=== PATIENT | male | born 1980 | race Caucasian/White ===

== ENCOUNTER → 2016-11-06 | Outpatient (CLI) | payer BC ==
--- NOTE | 2016-11-06 13:49 | RADIOLOGY REPORT (SQ) ---
EXAM DESCRIPTION: MRI HEAD WITHOUT COMPLETED DATE/TIME: 11/06/2016 1:29 pm REASON FOR STUDY: DIZZINESS AND GIDDINESS (R42) R42 DIZZINESS AND GIDDINESS COMPARISON: None. TECHNIQUE: Multiplanar imaging includes non-contrasted T1, T2, FLAIR, and diffusion with ADC map seq uences. Images stored on PACS. LIMITATIONS: None. FINDINGS: ANATOMY: No anomalies. Normal vascular flow voids. Pituitary fossa normal. CSF SPACES: Normal in size and contour. No hemorrhage. CEREBRUM: Sulci and gyri normal in size and contour. Normal white matter signal on FLAIR imaging. No evidence of hemorrhage, mass, or extraaxial fluid collection. POSTERIOR FOSSA: No signal alteration. No hemorrhage. No edema, masses or mass effect. Internal florina tory canals, cerebello-pontine angles, mastoids normal. DIFFUSION IMAGING: Negative for acute or sub-acute infarction. ORBITS: No masses. Globes normal. PARANASAL SINUSES: No fluid levels. OTHER: No other significant finding. IMPRESSION: Normal brain. TECHNICAL DOCUMENTATION: JOB ID: [id number]- All Rights Reserved
--- NOTE | 2016-11-06 13:51 | RADIOLOGY REPORT (SQ) ---
EXAM DESCRIPTION: MRA HEAD WITHOUT COMPLETED DATE/TIME: 11/06/2016 1:29 pm REASON FOR STUDY: DIZZINESS AND GIDDINESS (R42) R42 DIZZINESS AND GIDDINESS COMPARISON: None. TECHNIQUE: Axial 3-D [id number] acquisition imaging performed through the brain in the area of t he [place]. Images reformatted using 3-D MIPS. LIMITATIONS: None. FINDINGS: SOURCE IMAGES: See separate report of the same date. 3-D MIP: No aneurysm. No occlusions. No significant stenosis. OTHER: No other significant finding. IMPRESSION: NORMAL MRA OF THE [place]. TECHNICAL DOCUMENTATION: JOB ID: [id number] [employer]- All Rights Reserved
== END ==
LOC: RAD 12:24
PROVIDERS: ATTEND Physician Assistant
DX: R42 Dizziness and giddiness (principal)
CPT/HCPCS: 70544; 70551

== ENCOUNTER 2018-08-08 08:21 | Day surgery (SDC) | payer BC ==
[~2018-08-08 08:21] MED LIST: PROPOFOL INJ 200 MG/20 ML VIAL IV ONE
[2018-08-08 10:42] VITALS: BP 114/65
--- NOTE | 2018-08-08 11:01 | Operative Report ---
Operative Report DATE OF SURGERY: 08/08/18 Operative Report: The risks benefits and alternatives of the procedure explained to the patient in detail and informed consent is obtained.A GIF Olympus video scope was inserted into the patient's mouth and hypopharynx, the esophagus is identified intubated and insufflated ,the scope was then advanced through the esophagus stomach and duodenum, retroflexion maneuver is done, the esophagus stomach and first and second portions of the duodenum examined. PREOPERATIVE DIAGNOSIS: Dysphagia POSTOPERATIVE DIAGNOSIS: Esophageal rings and furrows suggestive of eosinophilic esophagitis status post biopsy for confirmation. Gastritis status post biopsy to rule out Helicobacter pylori OPERATION: EGD with biopsy SURGEON: MACK RIVERA ANESTHESIA: LMAC TISSUE REMOVED OR ALTERED: As noted above. COMPLICATIONS: None. ESTIMATED BLOOD LOSS: None. INTRAOPERATIVE FINDINGS: As noted above. PROCEDURE: Patient tolerated the procedure well. No immediate postprocedure complications are noted. Patient discharged in good condition. Discharge date 08/08/2018. Discharge diet: Regular. Discharge activity: Regular. 2-3-week follow-up to discuss findings. Patient is instructed to call the office or proceed to the emergency room should there be any further problems or questions. Wait on the pathology.
== END 2018-08-08 09:45 | disposition home or self-care (01) ==
LOC: OROUT 08:21
PROVIDERS: ATTEND Internal Medicine Gastroenterology
DX: R13.10 Dysphagia, unspecified (principal); J45.909 Unspecified asthma, uncomplicated; Z79.899 Other long term (current) drug therapy
CPT/HCPCS: 43239; 88305 ×2; J2704; 731

== ENCOUNTER 2018-11-12 13:55 | Emergency (ER) | payer BC ==
[2018-11-12] MEDS ORDERED: MORPHINE SULFATE 10 MG/ML INJ IM ONE (14:03)
--- NOTE | 2018-11-12 14:04 | ER Document Report ---
ED Medical Screen (RME) - General Chief Complaint: Hand Pain Stated Complaint: LEFT HAND INJURY Time Seen by Provider: 11/12/18 14:01 Primary Care Provider: PRANAY PATEL PA-C [Primary Care Provider] - Follow up as needed Mode of Arrival: Ambulatory Information source: Patient Notes: Patient is a 38-year-old male presented to the emergency department with a nail in his left wrist. Patient reports this is from a pneumatic nail gun. He states this happened just prior to arrival. He has a strong radial pulse there is no active bleeding noted his cap refill is less than 3 seconds and he has normal motor and sensation distal to the area of injury. I have greeted and performed a rapid initial assessment of this patient. A comprehensive ED assessment and evaluation of the patient, analysis of test results and completion of the medical decision making process will be conducted by additional ED providers. I have specifically instructed the patient or famil y members with the patient to immediately return to any nursing staff should anything change in the patient's condition or with their chief complaint. This medical record was dictated with voice recognizing software. There may be grammatical, syntax errors that are unintended. TRAVEL OUTSIDE OF THE [place] IN LAST 30 DAYS: No - Related Data Allergies/Adverse Reactions: No Known Allergies Allergy (Verified 11/12/18 14:00) Past Medical History - Past Medical History Cardiac Medical History: Denies: Hx Coronary Artery Disease, Hx Heart Attack, Hx Hypertension Pulmonary Medical History: Reports: Hx Asthma Denies: Hx Bronchitis, Hx COPD, Hx Pneumonia Neurological Medical History: Denies: Hx Cerebrovascular Accident, Hx Seizures Musculoskeltal Medical History: Reports Hx Arthritis - DDD Skin Medical History: Reports Hx MRSA Infectious Medical History: Reports: Hx MRSA Past Surgical History: Reports: Hx Appendectomy - Immunizations Immunizations up to date: Yes Hx Diphtheria, Pertussis, Tetanus Vaccination: Yes - 2008 History of Influenza Vaccine for 01/2017 - 06/2017 Season: No Doctor's Discharge - Discharge Referrals: PRANAY PATEL PA-C [Primary Care Provider] - Follow up as needed
--- NOTE | 2018-11-12 14:29 | RADIOLOGY REPORT (SQ) ---
EXAM DESCRIPTION: WRIST LEFT 3 VIEWS COMPLETED DATE/TIME: 11/12/2018 2:14 pm REASON FOR STUDY: nail in wrist COMPARISON: None. NUMBER OF VIEWS: Three views. TECHNIQUE: AP, lateral, and oblique radiographic images acquired of the left wrist. LIMITATIONS: None. FINDINGS: MINERALIZATION: Normal. BONES: Nail injury Nail entering through the dorsal aspect of the carpal bones and angled medially a nd terminating in the hamate. SOFT TISSUES: No soft tissue swelling. No foreign body. OTHER: No other significant finding. IMPRESSION: Nail injury. See above discussion TECHNICAL DOCUMENTATION: JOB ID: [id number] [employer]- All Rights Reserved Reading location - IP/workstation name: [email or web address]
[2018-11-12] MEDS ORDERED: FENTANYL CITRATE INJ/PF 100 MCG/2 ML AMPUL IV ONE (18:12)
[2018-11-12] MEDS ORDERED: ONDANSETRON HCL INJ/PF 4 MG/2 ML SDV IV ONE ×3 (18:12→20:49)
[2018-11-12] MEDS ORDERED: CEFAZOLIN 2 GM/D5W RTU 2 GM/50 ML RTUPB IV ONE (18:13)
--- NOTE | 2018-11-12 18:13 | ER Document Report ---
ED General - General Chief Complaint: Hand Pain Stated Complaint: LEFT HAND INJURY Time Seen by Provider: 11/12/18 14:01 Primary Care Provider: RADAMES VALENTIN MD [ASSOCIATE] - Follow up in 3-5 days Mode of Arrival: Ambulatory Notes: Patient is a 38-year-old male that presents to the emergency department for chief complaint of nail injury from nail gun to the left hand. Patient states that he was putting shingles on a roof, and he had his hand on the shingle, he went to go use a nail gun, and somewhat stepped on the air hose, and pulled the gun back and the nail gun struck his left hand putting in a barbed nail into his left hand. He is right-handed. Denies any other injuries. Did not fall. He currently rates his pain as a 10 out of 10, has a little bit of tingling in his fourth and fifth digit, but has feeling intact, he currently describes his pain as a constant aching and throbbing pain is radiating up towards his elbow. No other complaints at this time. He believes his last tetanus shot was approximately 7 years ago. Past Medical History: Denies chronic medical conditions Past Surgical History: Hip surgery, appendectomy Social History: Admits to smoking cigarettes and occasional alcohol use, denies illicit drug use. Family History: Reviewed and noncontributory for presenting illness Allergies: Reviewed, see documented allergy list. REVIEW OF SYSTEMS: Other than noted above, the 12 point review of systems was reviewed with the patient and were negative, all pertinent findings are included in the HPI. PHYSICAL EXAMINATION: Vital signs reviewed, nursing noted reviewed. GENERAL: Patient is pacing in the room, appears uncomfortable and in pain. HEAD: Atraumatic, normocephalic. EYES: Eyes appear normal, extraocular movements intact, sclera anicteric, conjunctiva are normal. ENT: nares patent, oropharynx clear without exudates. Moist mucous membranes. NECK: Normal range of motion, supple without lymphadenopathy LUNGS: Breath sounds clear to auscultation bilaterally and equal. No wheezes rales or rhonchi. HEART: Regular rate and rhythm without murmurs ABDOMEN: Soft, nontender, normoactive bowel sounds. No rebound, guarding, or rigidity. No masses appreciated. EXTREMITIES: In the dorsum of the left hand, there is a metal nail, flush with the skin, no bleeding from the site. Patient is neurovascularly intact distally, able to move all fingers with discomfort however, there is no laceration, or puncture wound on the palmar aspect of the hand. Patient's cap refill is less than 3 seconds in all digits. Sensation intact in all digits distally, and patient is able to move all digits. The rest the patient's extremity exam is grossly unremarkable, with good range of motion, and otherwise nontender with the exception of the left hand. NEUROLOGICAL: No focal neurological deficits. Moves all extremities spontaneously Motor and sensory grossly intact on exam. PSYCH: Appears uncomfortable and in pain. SKIN: Warm, Dry, normal turgor, no rashes or lesions noted on exposed skin TRAVEL OUTSIDE OF THE [place] IN LAST 30 DAYS: No - Related Data Allergies/Adverse Reactions: propofol [From Diprivan] Adverse Reaction (Severe, Verified 11/12/18 20:38) Confusion Past Medical History - General Information source: Patient - Social History Smoking Status: Current Some Day Smoker Frequency of alcohol use: Occasional Drug Abuse: None Family History: Reviewed & Not Pertinent Patient has suicidal ideation: No Patient has homicidal ideation: No - Past Medical History Cardiac Medical History: Denies: Hx Coronary Artery Disease, Hx Heart Attack, Hx Hypertension Pulmonary Medical History: Reports: Hx Asthma Denies: Hx Bronchitis, Hx COPD, Hx Pneumonia Neurological Medical History: Denies: Hx Cerebrovascular Accident, Hx Seizures Renal/ Medical History: Denies: Hx Peritoneal Dialysis Musculoskeletal Medical History: Reports Hx Arthritis - DDD Skin Medical History: Reports Hx MRSA Infectious Medical History: Reports: Hx MRSA Past Surgical History: Reports: Hx Appendectomy - Immunizations Immunizations up to date: Yes Hx Diphtheria, Pertussis, Tetanus Vaccination: Yes - 2008 Physical Exam - Vital signs Vitals: Pulse Resp BP Pulse Ox 89 18 145/108 H 99 11/12/18 14:02 11/12/18 14:02 11/12/18 14:02 11/12/18 14:02 Course - Re-evaluation Re-evalutation: Patient seen and examined vital signs reviewed. Patient was evaluated and treated as appropriate for the patient's presenting symptoms and complaint, with consideration of any critical or life threatening conditions that may be associated with their obtained history and exam as noted above. Patient was treated with initially given morphine in triage, x-ray obtained which demonstrated an nail that appeared to be embedded in the dorsal aspect of the hamate, no penetration anterior to the carpal bones. Patient still having pain when I saw him, he was given IV fentanyl, still having significant pain, it seemed to "wear off" and was then given Zofran, and Dilaudid, which did seem to help with the pain to a degree. Procedural sedation was discussed with the patient to remove the nail, I initially did call orthopedic surgery, but they cannot perform this until Saturday, did not find it to be emergent, which I did agree with, but patient did not feel that he could wait that long, due to his pain, so I did discuss with him the risks and benefits having the nail removed in the emergency department under conscious sedation, and reviewed medication propofol with him as well other potential agents, patient was agreeable to proceed forward. Patient seemed to have adverse reaction to propofol in the emergency department, as noted, he became rather agitated, and had to be re-sedated with IV Versed and etomidate, which did adequately sedate the patient, his hand was anesthetized with 1% lidocaine a total of 5 mL's, and the nail was removed successfully. Patient had minimal bleeding afterwards, dressing was applied he was placed in a splint. Patient was monitored post procedurally, and looking up, was somewhat mildly confused which would be expected, but seemed very agitated was having tremors, and one point it have vomiting, and was given additional Zofran, and Benadryl to help with his symptoms, seemingly as adverse reactions from the sedating medications. I did discuss with him if he use any illicit drugs, apparently marijuana was found on him in the emergency department, but he denied any other illicit drugs. The patient was re-evaluated and was improving, nausea resolved, he was still having some pain, but was alert, and appeared much improved, patient will be dispensed home with [place], prescriptions for Keflex, and naproxen, and have him follow-up with orthopedic surgery. Evaluation was most consistent with nail to the left hand, removed in the ED, have him follow-up with orthopedic surgery. Plan of care was discussed with the patient at this point, after careful consideration I feel that that patient can be discharged from the emergency department, the patient was educated treatments and reasons to return to the emergency department based on their presumed diagnosis as noted above, they were advised to followup with a primary care physician in 2-3 days. Patient was agreeable to plan of care. *Note is created using voice recognition software and may contain spelling, syntax or grammatical errors. 11/12/18 22:52 - Vital Signs Vital signs: Temp Pulse Resp BP Pulse Ox 99.1 F 45 L 16 133/86 H 100 11/12/18 19:48 11/12/18 21:38 11/12/18 22:06 11/12/18 22:06 11/12/18 22:06 Procedures - Conscious Sedation Conscious sedation Consent obtained: Yes Indication: Metal nail removal Prior complications: Procedural sedation Emergent conditions applies.: E. - ASA Classification Airway Evaluation: Normal anatomy Mallampati Classification: Class 1 Used during procedure: Suction available, IV access obtained, Pulse ox on pt., clerk on pt. Medications administered: Versed - 4mg, Etomidate - 15mg, Diprivan - 100mg total in 20mg alliquots Reversal agents: None I personally performed/intraservice time: Sedation, Procedure, 30 min or less Notes: Risks and benefits of the procedure and sedation were described to the patient. Patient allergies reviewed, and patient stated no known drug allergies. Patient was initially given 40 mg of propofol IV, and additionally given 20 mg and an additional 20 mg as the patient was not achieving adequate sedation, and lastly given a final 20 mg, total 100 mg, at this point the patient became agitated, altered, and was aggressive, pulling at all limbs, and sitting up in the bed, seemingly having an emergence reaction to the medication. At this point asked the nursing staff to give the patient 4 mg of IV Versed, initially given as 2 mg, and then 5 minutes later followed by another 2 mg as the patient was still rather agitated, and was becoming a harm to himself. Patient seemed to relax some, but was still having agitation, to complete the procedure to remove the nail from the patient's hand, he was given lastly 50 mg of etomidate. This did adequately sedate the patient, after locally anesthetizing the patient's dorsum of his hand with 1% lidocaine, a total of 5 mL around the site of the nail, the nail was removed using curved hemostats, and pliers. Patient tolerated this well, and was monitored post procedurally. - Immobilization Left Wrist Pre-Proc Neuro Vasc Exam: Normal Immobilizer type: Cock-up Performed by: PCT Post-Proc Neuro Vasc Exam: Normal Alignment checked and good: Yes Critical Care Note - Critical Care Note Total time excluding time spent on procedures (mins): 35 Comments: Critical care time 35 minutes exclusive from separate billable procedures for a patient requiring complex medical decision making, and high potential for clinical deterioration. In a patient that had adverse reactions to sedatives, requiring frequent reevaluation, and monitoring, in addition to his procedure itself. Time spent obtaining history from patient or surrogate, discussions with consultants, development of treatment plan with patient or surrogate, evaluation of patient's response to treatment, examination of patient, ordering and performing treatments and interventions, ordering and review of laboratory studies, re-evaluation of patient's condition, ordering and review of radiographic studies and review of old charts Discharge - Discharge Clinical Impression: Foreign body hand Qualifiers: Encounter type: initial encounter Laterality: left Qualified Code(s): S60.552A - Superficial foreign body of left hand, initial encounter Condition: Stable Disposition: HOME, SELF-CARE Additional Instructions: Please follow-up with orthopedic surgery, and take the prescribed antibiotic as directed for the next 6 days, take the anti-inflammatory pain medication, twice daily, and for breakthrough pain you may take the stronger pain pill, recommend keeping your arm elevated as much as possible, and leaving the splint in place, if you notice fever, or pus drainage from the wound, please return to the emergency department immediately to be reevaluated. Prescriptions: Cephalexin Monohydrate [Keflex 500 mg Capsule] 500 mg PO TID 7 Days #18 capsule Hydrocodone/Acetaminophen [[place] 5-325 mg Tablet] 1 tab PO Q8H PRN #12 tablet PRN Reason: hand pain Naproxen [Naprosyn] 500 mg PO BID #30 tablet Referrals: RADAMES VALENTIN MD [ASSOCIATE] - Follow up in 3-5 days
[2018-11-12] MEDS ORDERED: DIPH/PERTUSS(ACELL)/TETANUS VAC/PF 0.5 ML SYR (>=10YO) IM ONE (18:23)
[2018-11-12] MEDS ORDERED: PROPOFOL INJ 200 MG/20 ML VIAL IV ONE (18:59)
[2018-11-12] MEDS ORDERED: CEFAZOLIN SODIUM 2 GM in DEXTROSE 5%-WATER 100 ML IV ONE (19:30)
[2018-11-12] MEDS ORDERED: HYDROMORPHONE HCL INJ/PF 2 MG/ML AMPULE IV ONE (19:33)
[2018-11-12] MEDS ORDERED: MIDAZOLAM 2 MG/2 ML INJ ONE (19:59)
[2018-11-12] MEDS ORDERED: LIDOCAINE 1% INJ-PF (10 MG/ML) 30 ML SDV ONE (20:05)
[2018-11-12] MEDS ORDERED: ETOMIDATE INJ/PF 20 MG/10 ML SDV IV ONE (20:05)
[2018-11-12] MEDS ORDERED: DIPHENHYDRAMINE HCL 50 MG/ML VIAL ONE (20:58)
[2018-11-12] MEDS ORDERED: DIPHENHYDRAMINE HCL 50 MG/ML VIAL IV ONE (20:58)
[2018-11-12] MEDS ORDERED: PROCHLORPERAZINE EDISYLATE INJ 10 MG/2 ML VIAL IM ONE (21:28)
[2018-11-12] MEDS ORDERED: HYDROCODONE/ACETAMINOPHEN 5-325 MG (6 TAB/ER DISP) PO PRN (22:45)
[2018-11-12] MEDS ORDERED: HYDROCODONE/ACETAMINOPHEN 5-325 MG TABLET PO ONE (22:45)
[2018-11-12 23:47] VITALS: BP 126/86
== END 2018-11-12 23:47 | disposition home or self-care (01) ==
LOC: ER 13:55
DX: S60.552A Superficial foreign body of left hand, initial encounter (principal); W29.4XXA Contact with nail gun, initial encounter; Y93.H3 Activity, building and construction; Y99.0 Civilian activity done for income or pay; R11.0 Nausea; F17.200 Nicotine dependence, unspecified, uncomplicated; Z23 Encounter for immunization; Z86.14 Personal history of Methicillin resistant Staphylococcus aureus infection
CPT/HCPCS: 96376; 99285; 96372; 99152; 90471; 96375; 96365; 96366; 73110; 90715; 20103; L3908 ×2; J2250; J0690; J1200; J3010; J3490 ×2; J2270; J1170; J2405; J7060; J2704

== ENCOUNTER 2018-11-14 09:45 | Day surgery (SDC) | payer BC ==
[~2018-11-14 09:45] MED LIST changes: -PROPOFOL INJ 200 MG/20 ML VIAL IV ONE; +SUCCINYLCHOLINE CHLORIDE INJ 200 MG/10 ML VIAL ONE
[2018-11-14] MEDS ORDERED: CEFAZOLIN SODIUM 2 GM in DEXTROSE 5%-WATER 100 ML IV PRN (10:15)
[2018-11-14] MEDS ORDERED: ALBUTEROL SULFATE 0.083% NEB 2.5 MG/3 ML AMPUL NEB ONE (11:11)
[2018-11-14] MEDS ORDERED: FAMOTIDINE INJ/PF 20 MG/2 ML SDV IV ONE (11:14)
[2018-11-14] MEDS ORDERED: FENTANYL CITRATE INJ/PF 100 MCG/2 ML AMPUL ONE (11:28)
[2018-11-14] MEDS ORDERED: MIDAZOLAM 2 MG/2 ML INJ ONE (11:28)
[2018-11-14] MEDS ORDERED: PROPOFOL INJ 200 MG/20 ML VIAL IV ONE (11:54)
[2018-11-14] MEDS ORDERED: BUPIVACAINE HCL 0.25 % INJ/PF (2.5 MG/1 ML) 30 ML VIAL ONE (12:41)
[2018-11-14] MEDS ORDERED: FENTANYL CITRATE INJ/PF 100 MCG/2 ML AMPUL IV PRN ×3 (12:45)
[2018-11-14] MEDS ORDERED: PROMETHAZINE HCL INJ 25 MG/1 ML VIAL IV PRN ×2 (12:45)
[2018-11-14] MEDS ORDERED: MORPHINE SULFATE 10 MG/ML INJ IV PRN (12:45)
[2018-11-14] MEDS ORDERED: DIPHENHYDRAMINE HCL 50 MG/ML VIAL IV PRN (12:45)
[2018-11-14] MEDS ORDERED: MEPERIDINE HCL/PF INJ 25 MG/1 ML DISP.SYRIN IV PRN (12:45)
--- NOTE | 2018-11-14 13:36 | Operative Report ---
Operative Report DATE OF SURGERY: 11/14/18 PREOPERATIVE DIAGNOSIS: 1. Left open hamate fracture. 2. Left retained forei gn body POSTOPERATIVE DIAGNOSIS: Same OPERATION: 1. Open treatment left hamate fracture. 2. Debridement left open hamate fracture. 3. Removal of deep retained foreign body SURGEON: RADAMES VALENTIN ANESTHESIA: GA ESTIMATED BLOOD LOSS: Minimal INTRAOPERATIVE FINDINGS: 1. Retained metallic foreign body. 2. Open hamate fracture. 3. Contaminated skin, cutaneous tissue, muscle, and bone. PROCEDURE: Indications for procedure: Mr. Lama is a 38-year-old man who sustained an open fracture of the left hamate with contamination of bone and soft tissue when he accidentally impaled a nail into the dorsum of his wrist with a nail gun. Patient was evaluated in the emergency room and the nail was removed; however, a portion of the nail was retained deep in the soft tissue. Description of procedure: Following the induction of a general anesthetic and administration of antibiotics, the patient was positioned supine on the operating room table. All bony prominences were padded. The extremity was sterilely prepped with Betadine scrub and prep solution. The arm was exsanguinated and a tourniquet inflated to 250 mmHg. A longitudinal incision was made on the dorsum of the wrist overlying the traumatic wound. The skin, subcutaneous tissue and deep tissue was found to be brown and contaminated. This tissue was removed. The extensor tendons were then mobilized. This brought us down upon the wrist capsule. The wrist capsule was opened. Metallic foreign body was identified and removed. The open fracture of the hamate was identified. This was also found to be contaminated and the open fracture was d ebrided with a curette. Copious irrigation of the open fracture was performed with sterile saline. The wrist capsule was then closed with 2-0 Vicryl. Additional irrigation was then performed. The skin was then closed with 3-0 nylon suture using interrupted sutures. Quarter percent Marcaine was injected for postoperative analgesia. A sterile dressing and volar splint was applied. The patient tolerated the procedure well without complications and was awakened and brought to recovery in good condition.
[2018-11-14] MEDS ORDERED: DEXMEDETOMIDINE INJ 80 MCG/20 ML VIAL IV ONE (13:39)
[2018-11-14] MEDS: MIDAZOLAM 2 MG/2 ML INJ ONE ×2 (14:27→15:18)
[2018-11-14] MEDS ORDERED: FLUMAZENIL INJ 0.5 MG/5 ML VIAL ONE (14:33)
[2018-11-14] MEDS ORDERED: NALOXONE HCL INJ/PF 0.4 MG/1 ML SDV ONE (14:56)
[2018-11-14 15:00] LABS: CALCIUM 8.6 mg/dL (8.4-10.2); PHOSPHORUS 4.1 mg/dL (2.5-4.5); POTASSIUM 3.3 mmol/L (3.6-5.0)
[2018-11-14] MEDS ORDERED: ONDANSETRON HCL INJ/PF 4 MG/2 ML SDV IV PRN (15:00)
[2018-11-14] MEDS ORDERED: LORAZEPAM INJ 2 MG/1 ML VIAL ONE (15:18)
[2018-11-14] MEDS ORDERED: ACETAMINOPHEN 1,000 MG/100 ML RTUPB IV ONE (15:18)
[2018-11-14] MEDS ORDERED: ONDANSETRON HCL INJ/PF 4 MG/2 ML SDV ONE (15:46)
[2018-11-14] MEDS ORDERED: ALBUTEROL SULFATE 0.083% NEB 2.5 MG/3 ML AMPUL NEB PRN (16:26)
[2018-11-14] MEDS ORDERED: ONDANSETRON 4 MG TAB.RAPDIS PO PRN (16:26)
[2018-11-14] MEDS ORDERED: MAG HYDROX/AL HYDROX/SIMETH SUSP 30 ML UDCUP PO PRN (16:26)
[2018-11-14] MEDS ORDERED: ACETAMINOPHEN 325 MG TABLET PO PRN (16:26)
[2018-11-14] MEDS ORDERED: TEMAZEPAM 15 MG CAPSULE PO PRN (16:26)
[2018-11-14] MEDS ORDERED: LORAZEPAM 0.5 MG TABLET PO PRN (16:26)
--- NOTE | 2018-11-14 16:50 | PDOC H&P ---
History of Present Illness Admission Date/PCP: PRANAY PATEL PA-C Patient complains of: Adverse reaction to succinylcholine History of Present Illness: TR ESPINAL JR is a 38 year old male who presented for surgery to remove foreign body from his left wrist. He was given succinylcholine for the intubation. The surgery only took 45 minutes. Postop the patient woke up however he could not move his head off the pillow. He has baseline bradycardia and so this is not new. 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 He has slowly recovering but anesthesia would like to have the patient admitted for overnight observation. Past Medical History Cardiac Medical History: Denies: Coronary Artery Disease, Myocardial Infarction, Hypertension Pulmonary Medical History: Reports: Asthma Denies: Bronchitis, Chronic Obstructive Pulmonary Disease (COPD), Pneumonia EENT Medical History: Denies: Eyes, Ears, Nose, Throat Neurological Medical History: Denies: Seizures Endocrine Medical History: Denies: Diabetes Mellitus Type 1, Hypothyroidism Renal/ Medical History: Denies: Chronic Kidney Disease, Nephrolithiasis Malignancy Medical History: Reports: None GI Medical History: Denies: Cirrhosis, Diverticulitis, Hepatitis, Ulcerative Colitis Musculoskeltal Medical History: Reports: Arthritis - DDD Skin Medical History: Denies: Eczema, Psoriasis Psychiatric Medical History: Reports: General Anxiety Disorder, Tobacco Dependency Denies: Alcohol Dependency, Depression Hematology: Denies: Anemia Infectious Medical History: Reports: Methicillin-Resistant Staph Aureus Past Surgical History Past Surgical History: Reports: Appendectomy, Orthopedic Surgery - Left wrist surgery today, right hip surgery Social History Information Source: Patient Lives with: Family Smoking Status: Current Every Day Smoker Frequency of Alcohol Use: Rare Hx Recreational Drug Use: Yes Drugs: Marijuana Hx Prescription Drug Abuse: No - Advance Directive Resuscitation Status: Full Code Family History Family History: CAD, Malignancy Parental Family History Reviewed: Yes Children Family History Reviewed: NA Sibling(s) Family History Reviewed.: Yes Medication/Allergy Home Medications: Trazodone HCl 50 mg PO ASDIR PRN 08/07/18 Cephalexin Monohydrate [Keflex 500 mg Capsule] 500 mg PO TID 7 Days #18 capsule 11/12/18 Hydrocodone/Acetaminophen [[place] 5-325 mg Tablet] 1 tab PO Q8H PRN #12 tablet 11/12/18 Naproxen [Naprosyn] 500 mg PO BID #30 tablet 11/12/18 Allergies/Adverse Reactions: propofol [From Diprivan] Adverse Reaction (Severe, Verified 11/14/18 10:27) Confusion Review of Systems Constitutional: ABSENT: chills, fever(s), headache(s), night sweats Eyes: ABSENT: visual disturbances Ears: ABSENT: hearing changes Nose, Mouth, and Throat: ABSENT: headache(s), mouth pain, sore throat Cardiovascular: ABSENT: chest pain, dyspnea on exertion, edema, palpitations Respiratory: ABSENT: cough, dyspnea, hemoptysis Gastrointestinal: ABSENT: abdominal pain, constipation, diarrhea, dysphagia, nausea, vomiting Genitourinary: PRESENT: nocturia. ABSENT: dysuria, hematuria Musculoskeletal: PRESENT: other - Cast on left wrist Integumentary: ABSENT: erythema, lesions, rash Neurological: PRESENT: weakness - Diffuse muscular weakness Psychiatric: PRESENT: anxiety. ABSENT: depression, hallucinations Endocrine: ABSENT: cold intolerance, flushing, heat intolerance Hematologic/Lymphatic: ABSENT: easy bleeding, easy bruising, lymphadenopathy Physical Exam Vital Signs: Temp Pulse Resp BP Pulse Ox 98.3 F 74 30 H 168/143 H 99 11/14/18 10:00 11/14/18 14:45 11/14/18 15:05 11/14/18 14:45 11/14/18 15:05 Intake & Output 11/13/18 11/14/18 11/15/18 06:59 06:59 06:59 Intake Total 0 Balance 0 Weight 70.31 kg General appearance: PRESENT: cooperative, mild distress, well-developed Head exam: PRESENT: atraumatic, normocephalic Eye exam: PRESENT: conjunctiva pink, EOMI. ABSENT: scleral icterus Ear exam: PRESENT: normal external ear exam Mouth exam: PRESENT: dry mucosa, tongue midline Respiratory exam: PRESENT: symmetrical, unlabored. ABSENT: accessory muscle use, rales, rhonchi, tachypnea, wheezes Cardiovascular exam: PRESENT: bradycardia, +S1, +S2 Pulses: PRESENT: normal dorsalis pedis pul GI/Abdominal exam: PRESENT: normal bowel sounds, soft. ABSENT: distended, guarding, tenderness Rectal exam: PRESENT: deferred Extremities exam: ABSENT: joint swelling, pedal edema Musculoskeletal exam: PRESENT: normal inspection Neurological exam: PRESENT: alert, awake, oriented to person, oriented to place, oriented to time, oriented to situation, CN II-XII grossly intact Psychiatric exam: PRESENT: anxious. ABSENT: agitated Focused psych exam: ABSENT: delusional, paranoid, restlessness Skin exam: PRESENT: other Results Laboratory Results: 11/14/18 14:18 11/14/18 14:18 Potassium 3.3 L Calcium 8.6 Phosphorus 4.1 Magnesium 1.7 Assessment and Plan - Diagnosis (1) Acetylcholinesterase deficiency Is this a current diagnosis for this admission?: Yes Plan: The patient awoke from anesthesia but had systemic motor weakness. He cannot lift his head off the pillow. After 2 hours he began to regain motor strength. He can move his head off the pillow. He is still weak. The anesthesiologist feels that he is recovering however an overnight observation would be prudent to make sure that he has complete recovery. We will give him IV fluids. He will require assistance to get out of bed for safety measures. He will have a regular diet. We should be able to discharge him home tomorrow. (2) Foreign body hand Qualifiers: Encounter type: initial encounter Laterality: left Qualified Code(s): S60.552A - Superficial foreign body of left hand, initial encounter Is this a current diagnosis for this admission?: Yes Plan: The patient had surgery on his left hand/wrist today. It is in a cast. I will provide analgesia for the patient as needed. - Time Time Spent with patient: 35 or more minutes Smoking Cessation Education: 3 to 10 minutes Medications reviewed and adjusted accordingly: Yes Anticipated discharge: Home Within: within 24 hours - Plan Summary Plan Summary: Observation status to ensure complete recovery of motor function.
[2018-11-14] MEDS: HYDROCODONE/ACETAMINOPHEN 5-325 MG TABLET PO PRN (20:07)
[2018-11-14] MEDS: NORMAL SALINE 1000 ML 1,000 ML IV PRN (20:08)
[2018-11-14] MEDS ORDERED: TRAZODONE HCL 50 MG TABLET PO ONE (21:00)
[2018-11-14] MEDS: CEPHALEXIN 500 MG CAPSULE PO SCH (21:30)
[2018-11-14] MEDS: FAMOTIDINE 20 MG TABLET PO SCH (21:30)
[2018-11-14] MEDS: HEPARIN SOD (PORCINE) 5,000 UNIT/ML 1 ML VIAL SUBCUT SCH (21:30)
[2018-11-14 22:06] LABS: ANION GAP 6 (5-19); BLOOD UREA NITROGEN 10 mg/dL (7-20); CALCIUM 8.8 mg/dL (8.4-10.2); CARBON DIOXIDE 26 mmol/L (22-30); CHLORIDE 106 mmol/L (98-107); GLUCOSE 97 mg/dL (75-110)
[2018-11-15] MEDS: NORMAL SALINE 1000 ML 1,000 ML IV PRN (00:09)
[2018-11-15] MEDS: HYDROCODONE/ACETAMINOPHEN 5-325 MG TABLET PO PRN ×2 (00:12→05:35)
[2018-11-15] MEDS: HEPARIN SOD (PORCINE) 5,000 UNIT/ML 1 ML VIAL SUBCUT SCH (05:35)
[2018-11-15] MEDS: CEPHALEXIN 500 MG CAPSULE PO SCH (05:35)
[2018-11-15] MEDS: FAMOTIDINE 20 MG TABLET PO SCH (10:05)
[2018-11-15 10:49] VITALS: BP 108/53
--- NOTE | 2018-11-15 15:44 | PDOC DISCHARGE SUMMARY ---
General - Admit/Disc Date/PCP Admission Date/Primary Care Provider: PRANAY PATEL PA-C Discharge Date: 11/15/18 - Discharge Diagnosis (1) Acetylcholinesterase deficiency Is this a current diagnosis for this admission?: Yes Summary: The patient had an adverse reaction to succinylcholine with prolonged paralysis. It began to dissipate several hours after surgery but anesthesiology requested overnight admission for observation. The anesthesiologist also placed an order for cholinesterase levels. This will be a send out study and likely have results next week. This morning the patient is awake, alert and fully functional. He will be discharged home. I reviewed, in general, the mechanism of the acetylcholinesterase and the importance of this enzyme as it relates to the medication he was administered. I stressed that he needs to have succinylcholine added to his allergy list and avoid this medication should he need surgery in the future. (2) Foreign body hand Is this a current diagnosis for this admission?: Yes Summary: The patient underwent surgery on his left hand. Evidently a remnant of a nail was unable to be fully removed in the emergency department. Dr. Senior perform the surgery. The patient is in a splint with Evaristo bandage. The patient will continue the Keflex prescription that he was given from the emergency department on . He will follow-up with Dr. Senior. I told the patient and his to cover the left lower arm with a plastic bag when he showers and call Dr. Senior's office on Saturday to get further directions regarding wound care. - Additional Information Resuscitation Status: Full Code Discharge Diet: As Tolerated Discharge Activity: Activity As Tolerated, Other - Avoid activity and weightbearing with left hand Home Medications: Trazodone HCl 50 mg PO ASDIR PRN 08/07/18 Cephalexin Monohydrate [Keflex 500 mg Capsule] 500 mg PO TID 7 Days #18 capsule 11/12/18 Hydrocodone/Acetaminophen [[place] 5-325 mg Tablet] 1 tab PO Q8H PRN #12 tablet 11/12/18 Naproxen [Naprosyn] 500 mg PO BID #30 tablet 11/12/18 Acetaminophen [Tylenol 325 mg Tablet] 650 mg PO Q4HP PRN tablet 11/15/18 Cephalexin Monohydrate [Keflex 500 mg Capsule] 500 mg PO Q8 capsule 11/15/18 History of Present Illness Patient complains of: Foreign body left hand History of Present Illness: Young otherwise healthy 38-year-old man who had a foreign body in his left hand. It was unable to be completely removed the emergency department and the patient had elective surgery with Dr. Senior yesterday. After surgery she had an adverse reaction to succinylcholine and I was asked by anesthesiology to admit the patient for observation overnight. Hospital Course Hospital Course: Uncomplicated hospital course. The succinylcholine has completely worn off this morning and the patient is appropriate for discharge. Physical Exam Vital Signs: Temp Pulse Resp BP Pulse Ox 98.4 F 61 16 115/69 99 11/15/18 07:07 11/15/18 07:07 11/15/18 07:07 11/15/18 07:07 11/15/18 07:07 Intake & Output 11/14/18 11/15/18 11/16/18 06:59 06:59 06:59 Intake Total 1832 Output Total 1005 Balance 827 Weight 70.31 kg General appearance: PRESENT: no acute distress Head exam: PRESENT: atraumatic, normocephalic Respiratory exam: PRESENT: clear to auscultation [place], symmetrical, unlabored. ABSENT: accessory muscle use, rales, rhonchi, tachypnea, wheezes Cardiovascular exam: PRESENT: RRR, +S1, +S2 GI/Abdominal exam: PRESENT: normal bowel sounds, soft. ABSENT: tenderness Extremities exam: PRESENT: other - Splint on left forearm Neurological exam: PRESENT: alert, awake, oriented to person, oriented to place, oriented to time, oriented to situation, CN II-XII grossly intact. ABSENT: motor sensory deficit Psychiatric exam: PRESENT: appropriate affect, normal mood. ABSENT: agitated, anxious Focused psych exam: ABSENT: delusional, restlessness Results Laboratory Results: 11/14/18 21:19 11/14/18 11/14/18 14:18 21:19 Sodium 138.3 Potassium 3.3 L 4.0 Chloride 106 Carbon Dioxide 26 Anion Gap 6 BUN 10 Creatinine 0.66 Est GFR ( Amer) > 60 Est GFR (Non-Af Amer) > 60 Glucose 97 Calcium 8.6 8.8 Phosphorus 4.1 Magnesium 1.7 1.8 Qualifiers - * PATIENT BEING DISCHARGED WITH ANY OF THE FOLLOWING DIAGNOSIS: No Acute Heart Failure - Is this a Heart Failure Patient?: No Plan Time Spent: Greater than 30 Minutes
== END 2018-11-15 11:00 | disposition home or self-care (01) ==
LOC: OROUT 09:45 → 3S 17:43 → OROUT 11-15 11:00
PROVIDERS: ATTEND Orthopaedic Surgery
DX: S62.142B Displaced fracture of body of hamate [unciform] bone, left wrist, initial encounter for open fracture (principal); S61.542A Puncture wound with foreign body of left wrist, initial encounter; W29.4XXA Contact with nail gun, initial encounter; E11.9 Type 2 diabetes mellitus without complications; I51.9 Heart disease, unspecified; E88.09 Other disorders of plasma-protein metabolism, not elsewhere classified; I50.9 Heart failure, unspecified; R00.1 Bradycardia, unspecified; G72.9 Myopathy, unspecified; F17.210 Nicotine dependence, cigarettes, uncomplicated; Z79.899 Other long term (current) drug therapy
CPT/HCPCS: 36415; 82962; 82310; 83735; 84100; 84132; 82480; 80048; 94660; 94002; 94640; 01830; 25645; 11012; G0378 ×2; G0379; J3490 ×4; J2250; J1644 ×2; J0690; J3010; J2310; J0330; J2405; J7060; J7030 ×2; J2704; S0028; J0131; 1830; J2060

== ENCOUNTER 2019-02-18 13:45 | Emergency (ER) | payer BC ==
[2019-02-18] MEDS ORDERED: ASPIRIN 81 MG TABLET, CHEWABLE PO ONE (14:01)
[2019-02-18] MEDS ORDERED: ONDANSETRON 4 MG TAB.RAPDIS PO ONE (14:02)
--- NOTE | 2019-02-18 14:05 | ER Document Report ---
ED Medical Screen (RME) - General Chief Complaint: Chest Pain Stated Complaint: CHEST PAIN Time Seen by Provider: 02/18/19 14:01 Primary Care Provider: PRANAY PATEL PA-C [Primary Care Provider] - Follow up as needed Mode of Arrival: Ambulatory Information source: Patient Notes: 38-year-old male presented to ED for complaint of chest pain shortness of breath and nausea and vomiting since 730. He does have a history of anxiety panic attacks he has had a hip surgery appendectomy esophageal rings released and a nail removed from his hand. States he does not smoke drinks about monthly but drank last night and no street drugs he lives with his . He is very anxious very fidgety call and his constantly. states he is in the middle of a panic attack. She states he has been vomiting all morning and she gave him a nausea pill and he threw it up. I will treat him with Zofran and get all of the chest pain protocol I have greeted and performed a rapid initial assessment of this patient. A comprehensive ED assessment and evaluation of the patient, analysis of test results and completion of medical decision making process will be conducted by an additional ED providers. TRAVEL OUTSIDE OF THE [place] IN LAST 30 DAYS: No - Related Data Allergies/Adverse Reactions: propofol [From Diprivan] Adverse Reaction (Severe, Verified 02/18/19 13:58) Confusion celiac Allergy (Intermediate, Uncoded 02/18/19 13:58) Past Medical History - Past Medical History Cardiac Medical History: Denies: Hx Coronary Artery Disease, Hx Heart Attack, Hx Hypertension Pulmonary Medical History: Reports: Hx Asthma Denies: Hx Bronchitis, Hx COPD, Hx Pneumonia Neurological Medical History: Denies: Hx Cerebrovascular Accident, Hx Seizures Endocrine Medical History: Denies: Hx Diabetes Mellitus Type 1, Hx Hypothyroidism Renal/ Medical History: Denies: Hx Peritoneal Dialysis GI Medical History: Denies: Hx Cirrhosis, Hx Diverticulitis, Hx Hepatitis, Hx Ulcerative Colitis Musculoskeltal Medical History: Reports Hx Arthritis - DDD Skin Medical History: Denies Hx Eczema, Reports Hx MRSA, Denies Hx Psoriasis Psychiatric Medical History: Denies: Hx Depression Infectious Medical History: Reports: Hx MRSA. Denies: Hx Hepatitis Past Surgical History: Reports: Hx Appendectomy, Hx Orthopedic Surgery - Left wrist surgery today, right hip surgery - Immunizations Immunizations up to date: Yes Hx Diphtheria, Pertussis, Tetanus Vaccination: Yes - 2009 Doctor's Discharge - Discharge Referrals: PRANAY PATEL PA-C [Primary Care Provider] - Follow up as needed
[2019-02-18] MEDS ORDERED: LORAZEPAM INJ 2 MG/1 ML VIAL IV ONE ×2 (14:38→18:38)
[2019-02-18] MEDS ORDERED: ONDANSETRON HCL INJ/PF 4 MG/2 ML SDV IV ONE ×2 (14:38→18:39)
[2019-02-18] MEDS: NORMAL SALINE 1000 ML 1,000 ML IV PRN ×2 (14:45→15:32)
[2019-02-18 14:53] LABS: ABSOLUTE BASOPHILS # (AUTO) 0.1 10^3/uL (0.0-0.2); ABSOLUTE LYMPHOCYTES (AUTO) 1.1 10^3/uL (0.5-4.7); ABSOLUTE MONOCYTES (AUTO) 0.7 10^3/uL (0.1-1.4); ABSOLUTE NEUT (AUTO) 11.5 10^3/uL (1.7-8.2); BASOPHILS % (AUTO) 0.7 % (0-2); EOSINOPHILS % (AUTO) 0.2 % (0-6); HEMOGLOBIN 15.5 g/dL (13.5-17.0); LYMPHOCYTES % (AUTO) 8.5 % (13-45); MEAN CORPUSCULAR HEMOGLOBIN 30.6 pg (27.0-33.4); MEAN CORPUSCULAR HGB CONC 34.5 g/dL (32.0-36.0); MEAN CORPUSCULAR VOLUME 89 fl (80-97); MONOCYTES % (AUTO) 4.9 % (3-13); PLATELET COUNT 327 10^3/uL (150-450); RED BLOOD COUNT 5.07 10^6/uL (4.35-5.55); RED CELL DISTRIBUTION WIDTH 13.4 % (11.5-14.0); SEGMENTED NEUTROPHILS % (AUTO) 85.7 % (42-78); TOTAL CELLS COUNTED % (AUTO) 100 %; WHITE BLOOD COUNT 13.4 10^3/uL (4.0-10.5)
[2019-02-18 15:01] LABS: INTERNATIONAL RATION (INR) 0.92; PROTHROMBIN TIME 12.4 SEC (11.4-15.4)
[2019-02-18 15:02] LABS: PARTIAL THROMBOPLASTIN TIME 31.8 SEC (23.5-35.8)
[2019-02-18 15:27] LABS: CREATINE KINASE MB 1.55 ng/mL (<4.55); NT PRO BNP 95 pg/mL (<125)
--- NOTE | 2019-02-18 15:31 | RADIOLOGY REPORT (SQ) ---
EXAM DESCRIPTION: CHEST SINGLE VIEW COMPLETED DATE/TIME: 02/18/2019 3:23 pm REASON FOR STUDY: chest pain COMPARISON: 07/17/2008 NUMBER OF VIEWS: One view. TECHNIQUE: Single frontal radiographic image of the chest acquired. LIMITATIONS: None. FINDINGS: LUNGS AND PLEURA: Stable appearance. MEDIASTINUM AND HILAR STRUCTURES: Stable heart size and mediastinal structures. HEART AND VASCULAR STRUCTURES: Stable appearance. SUPPORT DEVICES: Appropriate location without change. BONES: No acute findings. OTHER: No other significant finding. IMPRESSION: STABLE APPEARANCE OF THE CHEST. SUPPORT DEVICES UNCHANGED. TECHNICAL DOCUMENTATION: JOB ID: [id number] [employer]- All Rights Reserved Reading location - IP/workstation name: [email or web address]
[2019-02-18 15:33] LABS: TROPONIN I < 0.012 ng/mL
--- NOTE | 2019-02-18 16:25 | RADIOLOGY REPORT (SQ) ---
EXAM DESCRIPTION: BARIUM SWALLOW ESOPHAGUS COMPLETED DATE/TIME: 02/18/2019 4:16 pm REASON FOR STUDY: Hx esophageal strictures, vomiting COMPARISON: None. TECHNIQUE: Under fluoroscopic guidance, patient ingested water-soluble contrast followed by thin bar ium. Fluoroscopic spot images and routine radiographic images acquired and stored on PACS. 12 MM BARIUM TABLET GIVEN: No LIMITATIONS: Images acquired in supine position due to patient dizziness. FLUOROSCOPY TIME: 38 seconds 4 images saved to PACS. FINDINGS: NEUROMUSCULAR COORDINATION OF SWALLOW: Normal. No aspiration. ESOPHAGEAL MOTILITY: Normal peristalsis. No esophageal spasm. ESOPHAGEAL MUCOSA: Normal mucosa without masses or ulceration. GASTRO-ESOPHAGEAL JUNCTION: No hiatal hernia or reflux. NON-GI TRACT STRUCTURES: No significant finding. OTHER: No other significant finding. IMPRESSION: NORMAL SINGLE CONTRAST SWALLOW. COMMENT: None Quality ID [id number]: Final reports for procedures using fluoroscopy that document radiation exposure jazmin elizabeth, or exposure time and number of fluorographic images (if radiation exposure indices are not avail able) TECHNICAL DOCUMENTATION: JOB ID: [id number] 5592 [employer]- All Rights Reserved Reading location - IP/workstation name: [email or web address]
[2019-02-18] MEDS ORDERED: DIPHENHYDRAMINE HCL 50 MG/ML VIAL IV ONE (16:52)
--- NOTE | 2019-02-18 18:16 | RADIOLOGY REPORT (SQ) ---
EXAM DESCRIPTION: CT ABD/PELVIS WITH IV ONLY; CT CHEST WITH COMPLETED DATE/TIME: 02/18/2019 6:00 pm REASON FOR STUDY: Left sided abdominal pain; Lower esophageal discomfort, Hx stricture COMPARISON: None. TECHNIQUE: CT scan of the abdomen and pelvis performed using helical scanning technique with dynamic intravenous contrast injection. No oral contrast. Images reviewed with lung, soft tissue, and bone windows. Reconstructed coronal and sagittal MPR images reviewed. Delayed images for evaluation of the urinary system also acquired. All images stored on PACS. All CT scanners at this facility use dose modulation, iterative reconstruction, and/or weight based d osing when appropriate to reduce radiation dose to as low as reasonably achievable (ALARA). [facility]: Dose Right [facility]: CareDose [facility]: Dose Right [facility]: Teradose 4D [facility]: [employer] CONTRAST TYPE AND DOSE: 83 mL Omnipaque 350- low osmolar. RENAL FUNCTION: None required. The patient is less than 50 years old. RADIATION DOSE: . LIMITATIONS: None. FINDINGS: LOWER CHEST: No significant findings. No nodules or infiltrates. LIVER: Normal size. No masses. No dilated ducts. SPLEEN: Normal size. No focal lesions. PANCREAS: No masses. No significant calcifications. No adjacent inflammation or peripancreatic fluid collections. Pancreatic duct not dilated. GALLBLADDER: No identified stones by CT criteria. No inflammatory changes to suggest cholecystitis. ADRENAL GLANDS: No significant masses or asymmetry. RIGHT KIDNEY AND URETER: No solid masses. No significant calcifications. No hydronephrosis or hyd roureter. LEFT KIDNEY AND URETER: No solid masses. No significant calcifications. No hydronephrosis or hydr oureter. AORTA AND VESSELS: No aneurysm. No dissection. Renal arteries, SMA, celiac without stenosis. RETROPERITONEUM: No retroperitoneal adenopathy, hemorrhage or masses. BOWEL AND PERITONEAL CAVITY: No abnormal dilation of the esophagus. Oral contrast within the stomach . No masses or inflammatory changes. No free fluid or peritoneal masses. APPENDIX: Normal. PELVIS: No mass. Minimal free fluid within the right hemipelvis. Normal bladder. ABDOMINAL WALL: No masses. No hernias. BONES: No significant or acute findings. OTHER: No other significant finding. IMPRESSION: Minimal free fluid within the right hemipelvis although no acute intra- abdominal findin gs identified. Limited evaluation of the esophagus with normal passage of oral contrast into the stomach. TECHNICAL DOCUMENTATION: JOB ID: [id number] Quality ID # [id number]: Final reports with documentation of one or more dose reduction techniques (e.g., Au tomated exposure control, adjustment of the mA and/or kV according to patient size, use of iterative reconstruction technique) 2010 [employer]- All Rights Reserved Reading location - IP/workstation name: [email or web address]
--- NOTE | 2019-02-18 18:16 | RADIOLOGY REPORT (SQ) ---
EXAM DESCRIPTION: CT ABD/PELVIS WITH IV ONLY; CT CHEST WITH COMPLETED DATE/TIME: 02/18/2019 6:00 pm REASON FOR STUDY: Left sided abdominal pain; Lower esophageal discomfort, Hx stricture COMPARISON: None. TECHNIQUE: CT scan of the abdomen and pelvis performed using helical scanning technique with dynamic intravenous contrast injection. No oral contrast. Images reviewed with lung, soft tissue, and bone windows. Reconstructed coronal and sagittal MPR images reviewed. Delayed images for evaluation of the urinary system also acquired. All images stored on PACS. All CT scanners at this facility use dose modulation, iterative reconstruction, and/or weight based d osing when appropriate to reduce radiation dose to as low as reasonably achievable (ALARA). [facility]: Dose Right [facility]: CareDose [facility]: Dose Right [facility]: Teradose 4D [facility]: [employer] CONTRAST TYPE AND DOSE: 83 mL Omnipaque 350- low osmolar. RENAL FUNCTION: None required. The patient is less than 50 years old. RADIATION DOSE: . LIMITATIONS: None. FINDINGS: LOWER CHEST: No significant findings. No nodules or infiltrates. LIVER: Normal size. No masses. No dilated ducts. SPLEEN: Normal size. No focal lesions. PANCREAS: No masses. No significant calcifications. No adjacent inflammation or peripancreatic fluid collections. Pancreatic duct not dilated. GALLBLADDER: No identified stones by CT criteria. No inflammatory changes to suggest cholecystitis. ADRENAL GLANDS: No significant masses or asymmetry. RIGHT KIDNEY AND URETER: No solid masses. No significant calcifications. No hydronephrosis or hyd roureter. LEFT KIDNEY AND URETER: No solid masses. No significant calcifications. No hydronephrosis or hydr oureter. AORTA AND VESSELS: No aneurysm. No dissection. Renal arteries, SMA, celiac without stenosis. RETROPERITONEUM: No retroperitoneal adenopathy, hemorrhage or masses. BOWEL AND PERITONEAL CAVITY: No abnormal dilation of the esophagus. Oral contrast within the stomach . No masses or inflammatory changes. No free fluid or peritoneal masses. APPENDIX: Normal. PELVIS: No mass. Minimal free fluid within the right hemipelvis. Normal bladder. ABDOMINAL WALL: No masses. No hernias. BONES: No significant or acute findings. OTHER: No other significant finding. IMPRESSION: Minimal free fluid within the right hemipelvis although no acute intra- abdominal findin gs identified. Limited evaluation of the esophagus with normal passage of oral contrast into the stomach. TECHNICAL DOCUMENTATION: JOB ID: [id number] Quality ID # [id number]: Final reports with documentation of one or more dose reduction techniques (e.g., Au tomated exposure control, adjustment of the mA and/or kV according to patient size, use of iterative reconstruction technique) 2010 [employer]- All Rights Reserved Reading location - IP/workstation name: [email or web address]
--- NOTE | 2019-02-18 18:41 | ER Document Report ---
ED General - General Chief Complaint: Chest Pain Stated Complaint: CHEST PAIN Time Seen by Provider: 02/18/19 14:01 Primary Care Provider: PRANAY PATEL PA-C [Primary Care Provider] - Follow up as needed Mode of Arrival: Ambulatory TRAVEL OUTSIDE OF THE [place] IN LAST 30 DAYS: No - Related Data Allergies/Adverse Reactions: propofol [From Diprivan] Adverse Reaction (Severe, Verified 02/18/19 13:58) Confusion celiac Allergy (Intermediate, Uncoded 02/18/19 13:58) Past Medical History - General Information source: Patient - Social History Smoking Status: Former Smoker Chew tobacco use (# tins/day): No Frequency of alcohol use: drankn heavily last night Drug Abuse: None Family History: CAD, Malignancy Patient has suicidal ideation: No Patient has homicidal ideation: No - Past Medical History Cardiac Medical History: Denies: Hx Coronary Artery Disease, Hx Heart Attack, Hx Hypertension Pulmonary Medical History: Reports: Hx Asthma Denies: Hx Bronchitis, Hx COPD, Hx Pneumonia Neurological Medical History: Denies: Hx Cerebrovascular Accident, Hx Seizures Endocrine Medical History: Denies: Hx Diabetes Mellitus Type 1, Hx Hypothyroidism Renal/ Medical History: Denies: Hx Peritoneal Dialysis GI Medical History: Denies: Hx Cirrhosis, Hx Diverticulitis, Hx Hepatitis, Hx Ulcerative Colitis Musculoskeletal Medical History: Reports Hx Arthritis - DDD Skin Medical History: Denies Hx Eczema, Reports Hx MRSA, Denies Hx Psoriasis Psychiatric Medical History: Denies: Hx Depression Infectious Medical History: Reports: Hx MRSA. Denies: Hx Hepatitis Past Surgical History: Reports: Hx Appendectomy, Hx Orthopedic Surgery - Left wrist surgery today, right hip surgery - Immunizations Immunizations up to date: Yes Hx Diphtheria, Pertussis, Tetanus Vaccination: Yes - 2008 Physical Exam - Vital signs Vitals: Temp Pulse BP Pulse Ox 98.2 F 76 125/89 H 99 02/18/19 14:00 02/18/19 14:00 02/18/19 14:00 02/18/19 14:00 Course - Vital Signs Vital signs: Temp Pulse Resp BP Pulse Ox 97.4 F 78 18 134/76 H 98 02/18/19 17:19 02/18/19 17:19 02/18/19 17:19 02/18/19 17:19 02/18/19 17:19 - Laboratory Result Diagrams: 02/18/19 14:40 Laboratory results interpreted by me: 02/18/19 14:40 WBC 13.4 H Lymph % (Auto) 8.5 L Absolute Neuts (auto) 11.5 H Seg Neutrophils % 85.7 H Discharge - Discharge Referrals: PRANAY PATEL PA-C [Primary Care Provider] - Follow up as needed
[2019-02-18 18:46] LABS: APPEARANCE,URINE CLEAR; BILIRUBIN,URINE NEGATIVE (NEGATIVE); COLOR,URINE STRAW; GLUCOSE, URINE NEGATIVE (NEGATIVE); KETONES,URINE 20 mg/dL (NEGATIVE); PROTEIN,URINE NEGATIVE (NEGATIVE); URINE SPECIFIC GRAVITY 1.044; UROBILINOGEN,URINE NEGATIVE mg/dL (<2.0)
--- NOTE | 2019-02-18 18:48 | ER Document Report ---
ED General - General Chief Complaint: Chest Pain Stated Complaint: CHEST PAIN Time Seen by Provider: 02/18/19 14:01 Primary Care Provider: PRANAY PATEL PA-C [Primary Care Provider] - Follow up as needed Mode of Arrival: Ambulatory Notes: Patient presents complaining of vomiting since about 730 this morning. Says he first noticed that he was feeling short of breath and then about 8 AM, had some chest pains. All of these were associated with vomiting at least 10 times or more. Patient says he has anxiety attacks and often notes associated with vomiting. He also says that he drank "a lot" of alcohol last evening, which she only does occasionally, but often results in vomiting episodes. Vomitus has been yellow and green. Says his stomach is feeling "weird", and only some minimal discomfort in the left lower abdomen anteriorly. Has not had any fevers. Has had his appendix removed. Non-smoker. Does not use illicit drugs. TRAVEL OUTSIDE OF THE [place] IN LAST 30 DAYS: No - Related Data Allergies/Adverse Reactions: propofol [From Diprivan] Adverse Reaction (Severe, Verified 02/18/19 13:58) Confusion celiac Allergy (Intermediate, Uncoded 02/18/19 13:58) Past Medical History - General Information source: Patient - Social History Smoking Status: Former Smoker Chew tobacco use (# tins/day): No Frequency of alcohol use: drankn heavily last night Drug Abuse: None Family History: Reviewed & Not Pertinent, CAD, Malignancy Patient has suicidal ideation: No Patient has homicidal ideation: No Pulmonary Medical History: Reports: Hx Asthma GI Medical History: Denies: Hx Cirrhosis, Hx Diverticulitis, Hx Hepatitis, Hx Ulcerative Colitis Musculoskeletal Medical History: Reports Hx Arthritis - DDD Skin Medical History: Reports Hx MRSA Psychiatric Medical History: Reports: Hx Anxiety Denies: Hx Depression Infectious Medical History: Reports: Hx MRSA. Denies: Hx Hepatitis Past Surgical History: Reports: Hx Appendectomy, Hx Orthopedic Surgery - Left wrist surgery today, right hip surgery - Immunizations Immunizations up to date: Yes Hx Diphtheria, Pertussis, Tetanus Vaccination: Yes - 2008 Review of Systems - Review of Systems Notes: REVIEW OF SYSTEMS: CONSTITUTIONAL : Denies fever. EENT: Denies eye, ear, nose or mouth or throat pain or other symptoms. CARDIOVASCULAR: See HPI. RESPIRATORY: Denies cough, chest congestion, or shortness of breath. GASTROINTESTINAL: See HPI. GENITOURINARY: Denies difficulty or painful urinating, urinary frequency, blood in urine. MUSCULOSKELETAL: Denies back or neck pain. Denies joint pain or swelling. SKIN: Denies rash or skin lesions. NEUROLOGICAL: Denies LOC or altered mental status. Denies headache. Denies sensory loss or motor deficits. ALL OTHER SYSTEMS REVIEWED AND NEGATIVE. Physical Exam - Vital signs Vitals: Temp Pulse BP Pulse Ox 98.2 F 76 125/89 H 99 02/18/19 14:00 02/18/19 14:00 02/18/19 14:00 02/18/19 14:00 Interpretation: Normal - General General appearance: Anxious, Other - restless In distress: Mild - spitting into vomit bag - Respiratory Respiratory status: No respiratory distress Chest status: Nontender Breath sounds: Normal Chest palpation: Normal - Cardiovascular Rhythm: Regular - Abdominal Tenderness: Tender - mild diffuse. No: McBurney's point, Schroeder's sign, Guardin g, Rebound Organomegaly: No organomegaly. No: Mass - Back Back: Normal - Neurological Neuro grossly intact: Yes Cognition: Normal Orientation: AAOx4 Speech: Normal - Psychological Associated symptoms: Anxious, Restlessness. No: Flight of ideas, Paranoid Course - Re-evaluation Re-evalutation: 02/18/19 19:33 After nurse had discontinued patient's IV lines and was preparing to discharge him, he had a large episode of emesis. I advised the nurse to give them a dispense pack of Zofran so we will have medication for the night and have the patient go home and try sipping on clear liquids and see if his nausea and vomiting clear. He has been hydrated with a couple of liters of saline and should not need any more fluids through the nighttime. Advised to return in the morning if not better. - Vital Signs Vital signs: Temp Pulse Resp BP Pulse Ox 98.5 F 75 18 126/78 H 99 02/18/19 19:38 02/18/19 19:38 02/18/19 19:38 02/18/19 19:38 02/18/19 19:38 - Laboratory Result Diagrams: 02/18/19 14:40 02/18/19 14:40 Laboratory results interpreted by me: 02/18/19 02/18/19 02/18/19 14:40 14:40 18:20 WBC 13.4 H Lymph % (Auto) 8.5 L Absolute Neuts (auto) 11.5 H Seg Neutrophils % 85.7 H Potassium 3.5 L Carbon Dioxide 21 L Glucose 111 H Urine Ketones 20 H - Diagnostic Test Radiology reviewed: Image reviewed, Reports reviewed - Barium swallow was normal. CT scan of the chest, abdomen, and pelvis with IV contrast were essentially normal. There is mention of a small amount of fluid in the right pelvis but otherwise no findings of significant. - EKG Interpretation by Me EKG shows normal: Sinus rhythm Rate: Normal Rhythm: NSR Additional EKG results interpreted by me: 02/18/19 19:23 EKG of poor quality with a lot of artifact. No ST changes or ischemia noted. Discharge - Discharge Clinical Impression: Vomiting, Abdominal pain, Anxiety, Dehydration Condition: Stable Disposition: HOME, SELF-CARE Additional Instructions: VOMITING: Vomiting (or nausea without vomiting) can be caused by many other different problems. It can mean that something's wrong with the stomach, such as ulcers or inflammation or the intestinal tract, such as appendicitis. But it can also be a symptom of a problem that has nothing to do with the stomach or intestines. Vomiting is common with severe headaches, earaches, tonsillitis, and kidney infections, etc. We see it with pneumonia or heart attacks. Drugs can cause nausea and vomiting. Many abdominal problems cause vomiting; for example, gallstones, kidney stones, pancreatitis, and intestinal obstruction (blocked bowels). In most cases, curing the vomiting depends on fixing the problem that caused it. For temporary relief, we may use an anti-nausea medicine. For home use, we can prescribe suppositories, chewable pills, pills that dissolve in the mouth, or liquid anti-nausea drugs. If the vomiting seems to be caused by a problem in the stomach, acid-suppressing drugs may be prescribed as well. It's important to avoid dehydration. Sip small amounts of clear liquids (soft drinks, tea, broth, etc) . Try to take fluids frequently even if you are vomiting to prevent dehydration. Take increasing amounts of fluid and when liquids are being consumed successfully, advance to small amounts of bland food (toast, soups, mashed potatoes, etc.) until you are able to resume a regular diet. Avoid aspirin, tobacco, and alcohol. If the vomiting worsens, if the problem that's making you vomit worsens, or if there's evidence of bleeding in the stomach (such as black, tarry stool, or bloody or black vomit), you should return immediately. Also, return if abdominal pain worsens or becomes localized to one area or you develop high fever. Call your doctor if you aren't improved in 24 hours. ABDOMINAL PAIN: There are many causes of abdominal pain. Pain can mean a serious problem requiring surgery (such as appendicitis). It can also be an innocent problem that goes away on its own (such as a viral infection). Often, time must pass to determine the cause of pain. The physician does not feel that hospitalization is necessary, at present. Things may change within the next 24 hours. Call the doctor or come back for re- examination if any problems occur, such as: (1) Pain that becomes more severe, steady, or becomes concentrated in one specific area. Also, pain that is more severe with movement or coughing. (2) Vomiting that persists or becomes more frequent. (3) Blood in the vomitus, urine, or bowel movements. Blood in the stool may have a tarry or black appearance. (4) Shaking chills or fever greater than 100 degrees F. (5) The abdomen becomes more distended or swollen. (6) Bowel movements cease. (7) Failure to improve as expected. INTRAVENOUS (I V) FLUIDS: As part of your care today, you received intravenous (IV) fluids. IV fluids are administered to patients who are dehydrated or to those who have certain chemical (electrolyte) abnormalities that need correcting. ANTINAUSEA MEDICATION: You have been given a medication to suppress nausea and vomiting. This type of medication can be given as a shot, pill, or suppository. It will usually last for many hours. Pills and shots usually last six to eight hours. For the typical illness, only one or two doses of the medication may be necessary. Mild lightheadedness may occur. This type of medicine can cause drowsiness. Do not drive or operate dangerous machinery while under its influence. Do not mix with alcohol. See your doctor at once if you have muscle spasms or tightness, or uncontrollable motions (particularly of the neck, mouth, or jaw). Persistent vomiting or severe lightheadedness should also be evaluated by the physician. NORMAL EXAM AND WORKUP: At this time, your examination and workup show no significant abnormality. No significant abnormal physical findings are noted. All laboratory, EKG, and imaging (x-ray, CT scans, ultrasound) studies that were ordered show no significant abnormality. Although your examination and all studies that were ordered showed no significant abnormal finding, there are no examinations and no studies that are 100% accurate. There is always the possibility that some abnormality could exist and not be detected with physical examination or within the limits and capabilities of laboratory and other studies. You should return or follow up as you were instructed on your visit today for further evaluation if your symptoms do not resolve. ANTINAUSEA MEDICATION: You have been given a medication to suppress nausea and vomiting. This type of medication can be given as a shot, pill, or suppository. It will usually last for many hours. Pills and shots usually last six to eight hours, suppositories last about 12 hours. For the typical illness, only one or two doses of the medication may be necessary. Mild lightheadedness may occur. This type of medicine can cause drowsiness. Do not drive or operate dangerous machinery while under its influence. Do not mix with alcohol. See your doctor at once if you have muscle spasms or tightness, or uncontrollable motions (particularly of the neck, mouth, or jaw). Persistent vomiting or severe lightheadedness should also be evaluated by the physician. Anxiety The physician feels that some of your health problems are being caused by anxiety. Anxiety affects your health in many ways. Anxiety alone can cause palpitations, sweats, chest pains, abdominal pains, shortness of breath, and headaches. It contributes to ulcer disease, high blood pressure, irritable bowel syndrome, and has been shown to cause flare-ups of many other diseases. Anxiety is not a simple disorder to treat. If the anxiety is due to recent life stresses, you may simply need time to "work through" the changes. If the anxiety is due to an underlying unhappiness with yourself or due to psychiatric disturbance, professional help will be needed. Your physician can refer you for further help if needed. Anti-anxiety medication is occasionally given if the stress is acute or if you are having trouble sleeping. Chronic or frequent use of these medications is not a good idea because the body becomes reliant on it, preventing you from dealing with life's normal stresses. Benzodiazepines You have been given a benzodiazepine medication. Examples of this type of medicine include Valium, Xanax, Librium, Ativan, and Halcion. Benzodiazepines have many uses. Medications of this type are used for insomnia, anxiety, muscle spasms, seizures, and drug and alcohol withdrawal. You may become very drowsy when you first take the medication. You should not drive or operate machinery while under its effects. Do not combine the medication with alcohol, or with any other medication without talking to your doctor. Do not take if without specific instruction from your electro mechanical engineer. Some benzodiazepines may have harmful interactions with oral antifungal medicines such as ketoconazole, itraconazole, and nefazodone. If you are taking an antifungal medicine, discuss this with your doctor before taking benzodiazepines. FOLLOW-UP CARE: If you have been referred to a physician for follow-up care, call the physician s office for an appointment as you were instructed or within the next two days. If you experience worsening or a significant change in your symptoms, notify the physician immediately or return to the Emergency Department at any time for re-evaluation. Prescriptions: Ondansetron [Zofran Odt 4 mg Tablet] 1 - 2 tab PO Q4H PRN #15 tab.rapdis PRN Reason: For Nausea/Vomiting Referrals: PRANAY PATEL PA-C [Primary Care Provider] - Follow up as needed
[2019-02-18 19:01] LABS: URINE AMPHETAMINES SCREEN NEGATIVE; URINE BENZODIAZEPINES SCREEN NEGATIVE; URINE MARIJUANA (THC) SCREEN UNCONFIRMED POSITIVE; URINE METHADONE SCREEN NEGATIVE; URINE PHENCYCLIDINE SCREEN NEGATIVE
[2019-02-18 19:02] LABS: URINE BARBITURATES SCREEN NEGATIVE
--- NOTE | 2019-02-18 19:02 | EKG REPORT ---
SEVERITY:- DEFECTIVE ECG - NONSPECIFIC INTRAVENTRICULAR CONDUCTION DELAY ABNRM R PROG, CONSIDER ASMI OR LEAD PLACEMENT MST LIKELY SINUS RHYTM.SEVERE BASELINE ARTIFACT.REPEAT EKG. : Confirmed by: Chio Cedeño MD 18-Feb-2019 19:02:18
[2019-02-18 19:07] LABS: URINE COCAINE SCREEN NEGATIVE
[2019-02-18] MEDS ORDERED: ONDANSETRON ODT 4 MG TAB (6 TAB/ER DISP) PO PRN (19:29)
[2019-02-18 19:39] VITALS: BP 126/78
[2019-02-18 20:01] LABS: ALKALINE PHOSPHATASE 54 U/L (38-126); ANION GAP 15 (5-19); ASPARTATE AMINO TRANSFERASE 30 U/L (17-59); BILIRUBIN,DIRECT 0.1 mg/dL (0.0-0.4); BILIRUBIN,TOTAL 0.7 mg/dL (0.2-1.3); BLOOD UREA NITROGEN 16 mg/dL (7-20); CALCIUM 10.1 mg/dL (8.4-10.2); CARBON DIOXIDE 21 mmol/L (22-30); CHLORIDE 104 mmol/L (98-107); GLUCOSE 111 mg/dL (75-110); POTASSIUM 3.5 mmol/L (3.6-5.0); TOTAL PROTEIN 7.8 g/dL (6.3-8.2)
== END 2019-02-18 19:41 | disposition home or self-care (01) ==
LOC: ER 13:45
DX: F41.9 Anxiety disorder, unspecified (principal); R11.10 Vomiting, unspecified; E86.0 Dehydration; R07.9 Chest pain, unspecified; R06.02 Shortness of breath; R10.817 Generalized abdominal tenderness; J45.909 Unspecified asthma, uncomplicated; Z90.49 Acquired absence of other specified parts of digestive tract; Z87.891 Personal history of nicotine dependence
CPT/HCPCS: 93005; 96376; 99285; 96361; 96374; 96375; 36415; 82553; 80307 ×2; 82550; 83690; 83735; 84443; 85025; 85610; 85730; 80053; 81001; 84484; 83880; 71045; 74220; 71260; 74177; 93010; J1200; S0119; J2060; J2405; J7030

== ENCOUNTER 2019-11-11 13:52 | Emergency (ER) | payer BC, OTHER ==
[2019-11-11] MEDS ORDERED: DIPH/PERTUSS(ACELL)/TETANUS VAC/PF 0.5 ML SYR (>=10YO) IM ONE (14:09)
[2019-11-11] MEDS ORDERED: LIDOCAINE 1% INJ-PF (10 MG/ML) 30 ML SDV INJ ONE (14:11)
--- NOTE | 2019-11-11 14:17 | ER Document Report ---
ED Hand/Wrist Injury - General Chief Complaint: Laceration Stated Complaint: LACERATION/LEFT INDEX FINGER Time Seen by Provider: 11/11/19 14:10 Primary Care Provider: PRANAY PATEL PA-C [Primary Care Provider] - Follow up as needed Mode of Arrival: Ambulatory Information source: Patient Notes: 39-year-old male presented to ED for laceration to the left index finger. He states he cut it with a hook knife. He is alert oriented respirations regular nonlabored speaking in full sentences. He states he needs a tetanus immunization at this time. He is alert oriented respirations regular nonlabored speaking in full sentences. TRAVEL OUTSIDE OF THE [place] IN LAST 30 DAYS: No - HPI Injury to: Index finger - Left Onset: Just prior to arrival Where: Home Timing: Still present Quality of pain: Sharp Severity: Moderate Pain Level: 3 Context: Laceration - Related Data Allergies/Adverse Reactions: propofol [From Diprivan] Adverse Reaction (Severe, Verified 02/18/19 13:58) Confusion celiac Allergy (Intermediate, Uncoded 02/18/19 13:58) Home Medications: trazodone, rosario Past Medical History - General Information source: Patient - Social History Smoking Status: Former Smoker Chew tobacco use (# tins/day): No Frequency of alcohol use: None Drug Abuse: None Family History: Reviewed & Not Pertinent, CAD, Malignancy - Past Medical History Cardiac Medical History: Reports: None Pulmonary Medical History: Reports: Hx Asthma EENT Medical History: Reports: None Neurological Medical History: Reports: None Endocrine Medical History: Reports: None Renal/ Medical History: Reports: None Malignancy Medical History: Reports None GI Medical History: Reports: None Musculoskeletal Medical History: Reports Hx Arthritis - DDD Skin Medical History: Reports Hx MRSA Psychiatric Medical History: Reports: Hx Anxiety Traumatic Medical History: Reports: None Infectious Medical History: Reports: Hx MRSA Past Surgical History: Reports: Hx Appendectomy, Hx Orthopedic Surgery - Left wrist surgery today, right hip surgery - Immunizations Immunizations up to date: Yes Hx Diphtheria, Pertussis, Tetanus Vaccination: Yes - November 11, 2019 Review of Systems - Review of Systems Constitutional: No symptoms reported EENT: No symptoms reported Cardiovascular: No symptoms reported Respiratory: No symptoms reported Gastrointestinal: No symptoms reported Genitourinary: No symptoms reported Male Genitourinary: No symptoms reported Musculoskeletal: No symptoms reported Skin: Other - Laceration left index finger distal pad Hematologic/Lymphatic: No symptoms reported Neurological/Psychological: No symptoms reported -: Yes All other systems reviewed and negative Physical Exam - Vital signs Vitals: Temp Pulse Resp BP Pulse Ox 98.4 F 83 16 115/62 97 11/11/19 14:00 11/11/19 14:00 11/11/19 14:00 11/11/19 14:00 11/11/19 14:00 Interpretation: Normal - General General appearance: Appears well, Alert - HEENT Head: Normocephalic, Atraumatic Eyes: Normal Pupils: PERRL - Respiratory Respiratory status: No respiratory distress Chest status: Nontender Breath sounds: Normal Chest palpation: Normal - Cardiovascular Rhythm: Regular Heart sounds: Normal auscultation Murmur: No - Abdominal Inspection: Normal Distension: No distension Bowel sounds: Normal Tenderness: Nontender Organomegaly: No organomegaly - Back Back: Normal, Nontender - Extremities General upper extremity: Normal inspection, Nontender, Normal color, Normal ROM, Normal temperature General lower extremity: Normal inspection, Nontender, Normal color, Normal ROM, Normal temperature, Normal weight bearing. No: Ethel's sign Hand: Laceration - left index finger pad flap 4.5 cm, Swelling. No: No evidence of human bite, No evidence of FB - Neurological Neuro grossly intact: Yes Cognition: Normal Orientation: AAOx4 [place] Coma Scale Eye Opening: Spontaneous [place] Coma Scale Verbal: Oriented [place] Coma Scale Motor: Obeys Commands [place] Coma Scale Total: 15 Speech: Normal Motor strength normal: LUE, RUE, LLE, RLE Sensory: Normal - Psychological Associated symptoms: Normal affect, Normal mood - Skin Skin Temperature: Warm Skin Moisture: Dry Skin Color: Normal Location of irregularity: Extremities - Index finger distal pad laceration flap Course - Vital Signs Vital signs: Temp Pulse Resp BP Pulse Ox 99.0 F 72 16 121/61 100 11/11/19 15:07 11/11/19 15:07 11/11/19 15:07 11/11/19 15:07 11/11/19 15:07 Procedures - Laceration/Wound Repair Left Finger 2nd digit Time completed: 14:57 Wound length (cm): 4.5 Wound's Depth, Shape: Flap Laceration pre-procedure: Sterile PPE donned, Sterile drapes applied, Shur-Clens applied Anesthetic type: 1% Lidocaine Volume Anesthetic (mLs): 4 Wound explored: Contaminated, Foreign body removed Irrigated w/ Saline (mLs): 500 Wound Repaired With: Sutures Suture Size/Type: 5:0, Ethilon Number of Sutures: 7 Layer Closure?: No Post-procedure wound care: Sterile dressing applied Post-procedure NV exam normal: Yes Complications: No Discharge - Discharge Clinical Impression: Finger laceration Qualifiers: Encounter type: initial encounter Finger: index finger Damage to nail status: without damage Foreign body presence: with foreign body Laterality: left Qualified Code(s): S61.221A - Laceration with foreign body of left index finger without damage to nail, initial encounter Condition: Stable Disposition: HOME, SELF-CARE Additional Instructions: Hand Laceration A laceration on the hand can present special problems. It may be difficult to keep the wound dry. Motion of the fingers can disturb the healing edges. Your work may involve exposure to damaging chemicals or water. Keep the wound clean and dry. If you can't keep the cut dry, undisturbed, and free of chemical exposure, please discuss this with the doctor. If any water or chemical gets onto the dressing, remove it, blot the wound dry, then apply a fresh bandage. Dressings should be changed every day. If you feel the stitches pulling as you move the hand, a splint or other form of protection is needed. If any signs of infection occur (swelling, redness, increasing tenderness, red streaks, tender lumps in the armpit, or fever), see the doctor immediately. SOAP CLEANSING: Gently wash the wound daily using a mild soap (like Ivory, Phisoderm, Neutrogena). Use warm water, rubbing gently until all debris, ooze, and c rusting have been washed from the wound. Allow to dry briefly (about 10 minutes) after cleaning. Repeat this cleansing at least three times a day for the first two days and then once or twice a day. ANTIBIOTIC OINTMENT PROTECTION: Your wounds are such that dressing them is not practical or optional. After cleansing, you should apply a thin coating of antibiotic ointment (Bacitracin, not Neosporin) to the wounds at least three times daily. This lessens infection risk, and may decrease the amount of scarring. Use a q-tip or dull butter knife, not your finger, to apply this ointment. Any debris or ooze which builds up in the ointment should be gently rubbed off with a sterile gauze pad. Harder crusting may need to be gently scrubbed off with a clean wash cloth with soap and warm water, perhaps applying a warm, wet wash cloth to the wound for ten minutes first. Development of redness, severe itching, or blistering may mean allergy to the ointment. See the doctor. TETANUS IMMUNIZATION GIVEN: You have been given an immunization against tetanus. Please record this in your records. In general, a booster is needed only once every 10 years. The tetanus shot protects against tetanus or "lockjaw," which is a complication of certain wound infections (the tetanus shot cannot protect against the actual infection). The immunization site may become warm and red due to local reaction. If this occurs, apply warm compresses and take aspirin or ibuprofen to reduce inflammation and discomfort. Return for evaluation if the reaction becomes severe. PROPHYLACTIC ANTIBIOTIC: The antibiotics which have been prescribed are designed to decrease the risk of infection. Only certain types of wounds benefit from this -- the typical cut, scrape, or burn DOES NOT require antibiotics. Of course, infection can still occur despite the use of prophylactic antibiotics. Your wound will heal with less chance of an infectious complication if you take the medication as directed. The most important dose is the FIRST dose, so don't delay filling the prescription! FOLLOW-UP CARE: Please return in _3__ days for an infection check and dressing change. Your sutures should be removed in ___7____ days. To facilitate a timely removal of your sutures, you may return to the Emergency Department at [facility]. You do not need to call for an appointment, but the best time to come in for suture removal is early in the morning. If you have been referred to another physician for follow-up care, call that physicians office for an appointment as you were instructed. If you experience a significant change in your laceration, or if you are concerned there may be an infection (swelling, redness, drainage, increasing tenderness, red streaks, tender lumps in the armpit or groin above the laceration, or fever), return to the Emergency Department immediately re-evaluation. Prescriptions: Cephalexin Monohydrate [Keflex 500 mg Capsule] 500 mg PO Q6H 5 Days #20 capsule Forms: Special Work Note, Return to Work Referrals: PRANAY PATEL PA-C [Primary Care Provider] - Follow up as needed
[2019-11-11] MEDS ORDERED: CEPHALEXIN 500 MG CAPSULE PO ONE (14:54)
[2019-11-11 15:11] VITALS: BP 121/61
== END 2019-11-11 15:11 | disposition home or self-care (01) ==
LOC: ER 13:52
DX: S61.211A Laceration without foreign body of left index finger without damage to nail, initial encounter (principal); W26.0XXA Contact with knife, initial encounter; Y92.009 Unspecified place in unspecified non-institutional (private) residence as the place of occurrence of the external cause; Z86.14 Personal history of Methicillin resistant Staphylococcus aureus infection; Z23 Encounter for immunization
CPT/HCPCS: 99282; 90471; 90715; 12002; J3490